=== PATIENT | female | born 1985 ===

== ENCOUNTER 2016-11-21 07:54 | Inpatient (IN) | payer MEDICAID ==
[2016-11-21] MEDS: Lactated Ringer's 1,000 ML IV SCH ×4 (08:00→21:06)
[2016-11-21 08:30] VITALS: BMI 35.9
[2016-11-21 08:36] VITALS: BP 108/57; PULSE 60; RESP 18; TEMP 98; O2SAT 100
[2016-11-21 09:19] LABS: BASO % 0.3 % (0.0-2.0); EOS % 0.5 % (0.0-4.0); HEMOGLOBIN 10.5 g/dL (12.0-16.0); LYMPH # 2.3 K/uL (1.0-4.3); LYMPH % 21.7 % (20.0-40.0); MEAN CELL VOLUME 68.2 fl (81.0-99.0); MEAN CORPUSCULAR HEMOGLOBIN 21.7 pg (27.0-31.0); MEAN CORPUSCULAR HGB CONC 31.8 g/dL (33.0-37.0); MEAN PLATELET VOLUME 8.8 fl (7.2-11.7); MONO # 0.8 K/uL (0.0-0.8); MONO % 7.9 % (0.0-10.0); NEUT # 7.3 K/uL (1.8-7.0); NEUT % 69.6 % (50.0-75.0); NRBC % 0.1 % (0.0-0.0); RBC 4.82 Mil/uL (3.80-5.20); RED CELL DISTRIBUTION WIDTH 15.8 % (11.5-14.5); WHITE BLOOD COUNT 10.5 K/uL (4.8-10.8)
[2016-11-21] MEDS ORDERED: Oxytocin 30 units/LR 500ML 30 U/500 ML BAG IV ONE (10:00)
[2016-11-21] MEDS ORDERED: ceFAZolin 2 GM in Sodium Chloride 0.9% 100 ML IVPB ONE (10:00)
[2016-11-21] MEDS ORDERED: ePHEDrine 50 mg/ml Inj ONE (12:05)
[2016-11-21] MEDS ORDERED: Esmolol 100 mg/10ml Inj IV ONE (12:35)
[2016-11-21] MEDS ORDERED: Phenylephrine 10 mg/ml Inj ONE (12:43)
[2016-11-21] MEDS ORDERED: Oxycodone/Acetaminophen 5/325 mg Tab PO PRN (15:16)
--- NOTE | 2016-11-21 16:12 | OBDS ---
DELIVERY PERSONNEL Delivery Doctor: Mark Navas MD Vocational Training Director: Mago Ch RN Anesthesiologist: Flor Christensen MD MATERNAL INFORMATION Delivery Anesthesia: Spinal Medications in Delivery: 30 units pitocin in 500 ML lr Estimated Blood Loss (ml): 700 Placenta Cultured: No Maternal Complications: None Provider Comments: preop dx: 39wks; elective repeat; h/o cd x1; h/o macrosomia postop dx: same surg: orossetos 1st asst: fhyman 2nd asst: gtolentino anesth: spinal dr christensen ebl 700cc findings: viable female; 3970g; 9_9 kathy: pt to rr to nbn path: none complic: none dict #[id number] LABOR SUMMARY EDC: 11/28/2016 00:00 No. Babies in Womb: 1 Attempted: No Labor Anesthesia: Intrathecal LABOR INFORMATION Reason for Induction: Not Applicable Oxytocin: N/A Group B Beta Strep: Negative Antibiotics # of Doses: 1 Antibiotics Time of Last Dose: 1203 Steroids Given: None Reason Steroids Not Administered: Not Applicable MEMBRANES Membranes Rupture Method: Artificial Rupture of Membranes: 11/21/2016 12:57 Length of Rupture (hrs): 0.05 Amniotic Fluid Color: Clear Amniotic Fluid Amount: Moderate Amniotic Fluid Odor: Normal STAGES OF LABOR Stage 3 hrs: 0 Stage 3 min: 1 VAGINAL DELIVERY Episiotomy: None Laceration Extension: N/A Laceration Type: None Sponge Count Correct: N/A Sharps Count Correct: No CSECTION DELIVERY Primary Indication: Repeat Elective Secondary Indication: N/A CSection Urgency: Elective CSection Incidence: Repeat Labor: No Labor Elective: Elective CSection Incision: Lower Uterine Transverse BABY A INFORMATION Infant Delivery Date/Time: 11/21/2016 13:00 Method of Delivery: Born in Route : No : N/A Forceps: N/A Vacuum Extraction: N/A Shoulder Dystocia : No SHOULDER DYSTOCIA BABY A Infant Delivery Date/Time: 11/21/2016 13:00 PRESENTATION/POSITION BABY A Presentation: Cephalic Cephalic Presentation: Vertex Vertex Position: Left Occipital Anterior Breech Presentation: N/A PLACENTA INFORMATION BABY A Placenta Delivery Time : 11/21/2016 13:01 Placenta Method of Delivery: Manual Removal Placenta Status: Delivered SCORES BABY A Heart Rate 1 min: >100 bpm Resp Effort 1 min: Good Cry Reflex Irritability 1 min: Cough or Sneeze or Pulls Away Muscle Tone 1 min: Active Motion Color 1 min: Body [place], Extremities Blue SCORE 1 MIN: 9 Heart Rate 5 min: >100 bpm Resp Effort 5 min: Good Cry Reflex Irritability 5 min: Cough or Sneeze or Pulls Away Muscle Tone 5 min: Active Motion Color 5 min: Body [place], Extremities Blue SCORE 5 MIN: 9 INFANT INFORMATION BABY A Gestational Age at Delivery: 39.0 Gestational Status: Term Outcome : Liveborn Infant Condition : Stable Infant Sex: Female IDENTIFICATION/MEDS BABY A ID Band Number: [id number] ID Band Location: Left Leg; Left Arm WEIGHT/LENGTH BABY A Infant Birthweight (gms): 3970 Infant Weight (lb): 8 Infant Weight (oz): 12 CORD INFORMATION BABY A No. Cord Vessels: 3 Nuchal Cord : Around Neck x1, Loose Cord Blood Taken: Yes Infant Suction: Mouth; Nose ASSESSMENT BABY A Complications: None Physical Findings at Delivery: Within Normal Limits Infant Respirations: Appears Normal Manager Business [employer]ing/ALS Called : No Infant Care By: Dr Buchanan Transferred To: Nursery
[2016-11-21] MEDS: Oxycodone/Acetaminophen 5/325 mg Tab PO PRN (20:59)
[2016-11-22] MEDS: Oxycodone/Acetaminophen 5/325 mg Tab PO PRN ×3 (03:31→23:53)
[2016-11-22 05:24] LABS: HEMOGLOBIN 8.4 g/dL (12.0-16.0); MEAN CELL VOLUME 69.1 fl (81.0-99.0); MEAN CORPUSCULAR HEMOGLOBIN 21.5 pg (27.0-31.0); MEAN CORPUSCULAR HGB CONC 31.2 g/dL (33.0-37.0); RBC 3.89 Mil/uL (3.80-5.20); RED CELL DISTRIBUTION WIDTH 15.9 % (11.5-14.5); WHITE BLOOD COUNT 11.8 K/uL (4.8-10.8)
--- NOTE | 2016-11-22 20:16 | OBPPN ---
Datetime: 11/22/2016 07:03 PP Pain Prov: Within normal limits PP Nausea Prov: Denies PP Flatus Prov: No PP BM Prov: No PP Breasts Prov: Not Done PP Heart Prov: Normal PP Lungs Prov: Normal PP Abdomen/Uterus Prov: Normal PP Lochia Prov: Not Done PP Vulva/Perineum Prov: Not Done PP CVA Tenderness Prov: Normal PP Extremities Prov: Normal PP C/S Incision Prov: Normal PP Impression Prov: Normal progression PP Plan Prov: Continue present management PP Progress Note Prov: This a 31 y/o with39 weeks GA presenting for scheduled due to previous . pt had done on 11/21/16. POD 1, ptt feeling well. Pt denies fever, chil ls, nausea, vomiting. robin was removed this morning. pt reports no flatus/BM. Allergies: latex and iodine. PMHx: denied. PSHx: 1 C section. OBHx: 1 C section due to macrosomia. SHx: NO smoking, alcohol or recreational drugs. A_P: 31 y/o presented for scheduled . POD 1. PLAN: continue w/ current managment as per post protocol. Sultan Fuller, PGY1 OB Hospitalist on-call...Pt seen on rounds. She feels fine. Tolerating diet. NEYDA Vital Signs Provider PP: Reviewed
--- NOTE | 2016-11-23 15:41 | OBPPN ---
Datetime: 11/23/2016 06:11 PP Nausea Prov: Denies PP Flatus Prov: Yes PP BM Prov: No PP Heart Prov: Normal PP Lungs Prov: Normal PP Abdomen/Uterus Prov: Normal PP CVA Tenderness Prov: Normal PP Extremities Prov: Normal PP C/S Incision Prov: Normal PP Comments Phys Exam Prov: pt was examined with a presence of a female hourly team members. Incision: looks dry and clean. no signs of infection present. PP Impression Prov: Normal progression PP Plan Prov: Continue present management PP Progress Note Prov: 31 y/o was seen and examined at bedside. Pt is ambulating well w/o dizzi ness. Tolerating PO diet well. Reports passing gas per rectum but no BM yet. voiding urine freely. d enies nausea, vomiting, fever, chills or calf pain. assessement: 1. 31 yo s/p , POD#2 2. Asymptomatic anemia plan: percocet and ibuprofen for pain managment Encourage and ambulatory Anticipated discharge tomorrow Sultan Fuller, PGY1 The patient was seen with the resident and I agree with note
[2016-11-23] MEDS: Lactated Ringer's 1,000 ML IV SCH ×2 (19:16→19:17)
[2016-11-23] MEDS: Oxycodone/Acetaminophen 5/325 mg Tab PO PRN (22:02)
--- NOTE | 2016-12-01 13:21 | PCM.OP ---
Operative Report - Operative Report Date of Surgery/Procedure: 11/21/16 Time of Surgery/Procedure: 12:41 Surgeon: Dr. Mark Richey Papeterie Table Assembler: Dr. Grace Lu, Dr. Brennan Boone Anesthesia/Sedation: Spinal Anesthesia administered by Dr. Christensen (anesthesiologist ) Pre-Operative Diagnosis: 1.Term at 39 weeks 2. History of prior section 3. Elective repeat 4. History of Macrosomia in first with 11 pound baby Post-Operative Diagnosis: 1.Term at 39 weeks 2. History of prior section 3. Elective repeat 4. History of Macrosomia in first with 11 pound baby Indication for Surgery: Patient is a 31 year old female with a : 2, para : 1 with a history of prior delivery who presents to the hospital for repeat section. Her history is significant for macrosomia with a first delivering a baby that was 11 pounds per patient. An informed consent was obtained for the section. Operative Findings: Findings show a viable female with clear amniotic fluid and direct OA presentation, a weight of 3970 grams and Apgars of 9 and 9 Procedure/Operation Description: Patient was taken to the operating room with the IV running. She underwent spinal anesthesia without complications. She was then prepped and draped in the routine sterile fashion and placed in the supine position with leftward tilt. A fascial skin incision was made at the site of the old scar this was then carried down to the rectus fascia which was incised midline extended bilaterally. The inferior rectus fascial edge was grasped with Koker and the underlying rectus muscle was dissected off using blunt and sharp dissection. The same procedure was performed along the superior rectus fascial edge. The rectus muscle was midline and the peritoneum was elevated and incised superiorly and inferiorly. The bladder blade was placed and the bladder flap created using the sharp and blunt dissection. A low transverse incision was made with the scapel and the incision was grasped on either side and elevated with Allis clamps. The incision was then cut further. The uterine cavity was entered bluntly following further dissection with the hemostat. The incision was extended digitally in a superior and inferior manner. The amniotic membrane was ruptured and clear fluid was noted. The 's head was difficult to deliver manually and so a vacuum was placed and the was then delivered. Vacuum was removed following delivery of the 's head and the main portion of the baby was delivered. The cord was clamped and cut, the mouth and nose was suctioned. The baby was handed over to the awaiting invasive manager. The cord blood was collected. The placenta was manually extracted. The uterus was exteriorized and cleared of all clots and debris. The uterine incision was approximated with 0- vicryl in a running locked fashion followed by an inbricated stitch with 0-monocryl. Good hemostasis was confirmed , the abdomen was irrigated and cleared of all clots and debris. The uterus was returned to the pelvic cavity and pelvic cavity was irrigated and cleared of all clots and debris. The uterine incision was re-inspected and good hemostasis was confirmed. The peritoneum was approximated with 2-0 vicryl in the running fashion. The rectus fascia was re-approximated with 0- vicryl in the running fashion beginning left lateral corner and going to the midline. Another suture of 0-vicryl beginning right lateral corner going to midline. Each stitch was respectively tied. The subcutaneous tissue was approximated 2-0 plain with a simple interrupted closure. The wound was irrigated, good hemostasis confirmed. The skin was approximated with uriel. The procedure would not have been possible without Dr Lu. Dr. Lu assisted in surgical entry, exposure, hemostasis, delivery of , and surgical closure. Estimated Blood Loss: 700cc Blood Replaced: no Sponge/Instrument Count: correct Drains: robin Complications: None Discharge & Condition: Patient's destination is to recovery room and to nursery.
== END 2016-11-24 13:35 | disposition home or self-care (01) | DRG 370 ==
LOC: H.EROB2 07:54 → H.L&D 08:35 → H.OB/GYN 17:04
PROVIDERS: ADMIT Obstetrics & Gynecology; ATTEND Obstetrics & Gynecology
PROC: 10D00Z1 Extraction of Products of Conception, Low, Open Approach (ICD-10-PCS; principal; 2016-11-21)
PROC: 4A1HXCZ Monitoring of Products of Conception, Cardiac Rate, External Approach (ICD-10-PCS; 2016-11-21)
DX: O34.211 Maternal care for low transverse scar from previous cesarean delivery (principal); O90.81 Anemia of the puerperium; O69.81X0 Labor and delivery complicated by cord around neck, without compression, not applicable or unspecified; Z3A.39 39 weeks gestation of pregnancy; Z37.0 Single live birth; Z91.040 Latex allergy status